=== PATIENT | female | born 1995 | race Caucasian/White ===

== ENCOUNTER 2024-07-31 13:27 | Emergency (ER) | payer MEDICAID ==
[~2024-07-31] VITALS: Ht 167.6 cm; Wt 100.0 kg
[2024-07-31 14:07] LABS: BASOPHILS % 0.8 % (0.0-2.0); EOSINOPHILS % 4.4 % (0.0-5.0); HEMATOCRIT. 30.1 % (36.0-48.0); HEMOGLOBIN. 10.5 g/dL (12.0-16.0); LYMPHOCYTES % 22.9 % (20.0-50.0); MEAN CORPUSCULAR HEMOGLOBIN 30.5 pg (28.0-32.0); MEAN CORPUSCULAR HGB CONC 34.7 g/dL (31.0-37.0); MEAN CORPUSCULAR VOLUME 87.7 fL (81.0-99.0); MEAN PLATELET VOLUME 7.9 fl (7.4-10.4); MONOCYTES % 6.6 % (2.0-8.0); NEUTROPHILS % 65.3 % (40.0-76.0); PLATELET 316 x1000/uL (130-400); RED BLOOD CELL COUNT 3.44 mill/uL (4.2-5.4); RED CELL DISTRIBUTION WIDTH 15.6 % (11.6-14.6); WHITE BLOOD COUNT 6.8 x1000/uL (4.5-11.0)
[2024-07-31 14:13] LABS: CHLORIDE 110 mEq/L (98-107); POTASSIUM 3.4 mEq/L (3.5-5.1); SODIUM 140 mEq/L (136-145)
[2024-07-31 14:14] LABS: CALCIUM 8.7 mg/dL (8.7-10.4); CARBON DIOXIDE 22 mEq/L (21-32)
[2024-07-31 14:19] LABS: CREATININE 0.6 mg/dL (0.6-1.0); GLUCOSE 92 mg/dL (70-105); UREA NITROGEN BLOOD 7 mg/dL (9-23)
[2024-07-31 14:33] LABS: CLARITY URINE CLOUDY (CLEAR); COLOR URINE YELLOW (YELLOW); GLUCOSE URINE NEGATIVE (NEGATIVE); KETONES URINE NEGATIVE (NEGATIVE); LEUKOCYTE ESTERASE URINE 2+ (NEGATIVE); NITRITE URINE NEGATIVE (NEGATIVE); OCCULT BLOOD URINE NEGATIVE (NEGATIVE); PROTEIN URINE TRACE (NEGATIVE); SPECIFIC GRAVITY URINE 1.027 (1.005-1.030); UROBILINOGEN URINE 0.2 E.U./dL (0.2-1.0)
[2024-07-31 15:00] LABS: SQUAMOUS EPITHELIAL CELL URINE 1+ /lpf (RARE/1+)
[2024-07-31 15:02] LABS: RBC URINE 0-2 /hpf (0-2); WBC URINE 25-50 /hpf (0-2)
[2024-07-31 15:03] LABS: BACTERIA URINE 3+; YEAST URINE NONE SEEN
[2024-07-31 15:04] LABS: TRICHOMONAS URINE FEW
[2024-07-31] MEDS: POTASSIUM BICARB/CIT ACID 25 MEQ TABLET.EFF PO ONE (15:07)
[2024-07-31] MEDS ORDERED: CEPH500C2 MT (15:27)
[2024-07-31 15:28] VITALS: BP 119/62; PULSE 99; RESP 17; O2SAT 99
== END 2024-07-31 15:41 | disposition home or self-care (01) ==
LOC: ER 13:27
DX: O23.43 Unspecified infection of urinary tract in pregnancy, third trimester (principal); N39.0 Urinary tract infection, site not specified; Z3A.30 30 weeks gestation of pregnancy
CPT/HCPCS: 36415; 76815; 80048; 81003; 85025; 86705; 86850; 86900; 99284

== ENCOUNTER 2024-12-01 08:02 | Emergency (ER) | payer MEDICAID ==
[~2024-12-01] VITALS: Ht 165.1 cm; Wt 65.0 kg
[~2024-12-01 08:02] MED LIST: CEPH500C2 MT
[2024-12-01 08:06] VITALS: BP 131/81; RESP 18; TEMP 36.7; O2SAT 99
[2024-12-01 08:35] VITALS: PULSE 88
[2024-12-01] MEDS: ACETAMINOPHEN 325MG TABLET PO ONE (09:03)
[2024-12-01] MEDS: TETANUS, DIPHTHERIA, PERTUSSIS VAC/PF 0.5ML (>10YR OLD) IM ONE (09:04)
== END 2024-12-01 10:34 | disposition home or self-care (01) ==
LOC: ER 08:02
DX: S09.8XXA Other specified injuries of head, initial encounter (principal); M79.621 Pain in right upper arm; F12.90 Cannabis use, unspecified, uncomplicated; F15.90 Other stimulant use, unspecified, uncomplicated; V89.2XXA Person injured in unspecified motor-vehicle accident, traffic, initial encounter; Y93.89 Activity, other specified; Y92.410 Unspecified street and highway as the place of occurrence of the external cause; Y99.8 Other external cause status
CPT/HCPCS: 73080; 70450; 90715; 90471; 99285; Z7610 ×2